=== PATIENT | female | born 1960 | race Caucasian/White ===

== ENCOUNTER 2021-02-05 15:11 | Outpatient (REF) | payer MEDICARE, SELFPAY ==
--- NOTE | ~2021-02-05 | XR_ITS ---
EXAMINATION: XR HIP, LEFT CLINICAL INFORMATION: Sprain of the hip COMPARISON: None TECHNIQUE: Two views of the left hip. Frontal view of the pelvis. FINDINGS: No fracture or dislocation. The femoral heads are well-seated within their acetabula. Joint spaces are maintained. The pelvic rim is intact. The sacroiliac joints and pubic symphysis are intact. Enthesophyte formation along the iliac crests. Nonobstructive bowel gas pattern. XR/XR hip LT w PEL1V IMPRESSION: Unremarkable appearance of the hips.
== END 2021-02-05 15:12 | disposition home or self-care (01) ==
LOC: HO.HMGCX 15:11
PROVIDERS: PCP Internal Medicine; Visit Provider Internal Medicine
DX: S73.102A Unspecified sprain of left hip, initial encounter (principal)
CPT/HCPCS: 73502

== ENCOUNTER → 2021-05-29 13:12 | Outpatient (BNVA) | payer MEDICARE, SELFPAY | PROVIDERS: PCP Internal Medicine; Visit Provider Psychiatry & Neurology Neurology | DX: G20 Parkinson's disease (principal); G47.52 REM sleep behavior disorder; K59.00 Constipation, unspecified | CPT/HCPCS: Q3014 ==

== ENCOUNTER → 2021-07-06 08:28 | Outpatient (BNVA) | payer MEDICARE, SELFPAY | PROVIDERS: PCP Internal Medicine; Visit Provider Psychiatry & Neurology Neurology | DX: G47.52 REM sleep behavior disorder (principal); G20 Parkinson's disease; F41.9 Anxiety disorder, unspecified; K59.00 Constipation, unspecified | CPT/HCPCS: 99212 ==

== ENCOUNTER → 2021-10-15 13:28 | Outpatient (BNVA) | payer MEDICARE, SELFPAY | PROVIDERS: PCP Internal Medicine; Visit Provider Psychiatry & Neurology Neurology | DX: G20 Parkinson's disease (principal); G47.52 REM sleep behavior disorder; F41.9 Anxiety disorder, unspecified; K59.00 Constipation, unspecified | CPT/HCPCS: 99212 ==

== ENCOUNTER → 2022-01-30 10:01 | Outpatient (BNVA) | payer MEDICARE, SELFPAY | PROVIDERS: PCP Internal Medicine; Visit Provider Psychiatry & Neurology Neurology | DX: G20 Parkinson's disease (principal); G47.52 REM sleep behavior disorder; F41.9 Anxiety disorder, unspecified; K59.00 Constipation, unspecified | CPT/HCPCS: 99212 ==

== ENCOUNTER → 2022-08-05 10:34 | Outpatient (BNVA) | payer MEDICARE, SELFPAY | PROVIDERS: PCP Internal Medicine; Visit Provider Psychiatry & Neurology Neurology | DX: G20 Parkinson's disease (principal); G47.52 REM sleep behavior disorder; F41.9 Anxiety disorder, unspecified; K59.00 Constipation, unspecified | CPT/HCPCS: 99212 ==

== ENCOUNTER 2025-03-24 16:14 | Emergency (ER) | payer MEDICARE, SELFPAY ==
--- NOTE | ~2025-03-24 | US_ITS ---
CLINICAL HISTORY: leg pain Venous duplex ultrasound left lower extremity Comparison: None provided Findings: The visualized deep veins are fully compressible with normal Doppler color flow and spectral tracings. No popliteal cyst. IMPRESSION: 1. Negative for left lower extremity deep vein thrombosis. This document has been electronically signed by: Rome Swartz MD on 03/24/2025 18:42:49
[2025-03-24 17:13] VITALS: BP 130/76; PULSE 78; RESP 16; TEMP 36.6; O2SAT 98; BMI 27.2
--- NOTE | 2025-03-24 17:13 | ED.GENADULT ---
HPI - General Adult General Chief complaint: Extremity Problem Stated complaint: left leg pain Related Data Home Medications ?Medication ?Instructions ?Recorded ?Confirmed anastrozole 1 mg tablet 1 mg PO DAILY 02/05/21 08/05/22 cephalexin 500 mg capsule 500 mg PO QID 02/05/21 08/05/22 celecoxib 200 mg capsule 200 mg PO DAILY 01/30/22 08/05/22 citalopram 20 mg tablet 20 mg PO DAILY 01/30/22 08/05/22 donepezil 10 mg tablet 10 mg PO 01/30/22 08/05/22 Previous Rx's ?Medication ?Instructions ?Recorded polyethylene glycol 3350 17 17 g PO DAILY #238 grams 07/06/21 gram/dose oral powder (Miralax) carbidopa 31.25 mg-levodopa 125 1 tab PO .5 times #150 tabs 08/05/22 mg-entacapone 200 mg tablet amantadine HCl 100 mg capsule 100 mg PO BID #180 caps 03/10/23 clonazepam 1 mg tablet 1 mg PO BEDTIME 90 days #90 tabs 03/14/23 ropinirole 0.25 mg tablet 0.25 mg PO .5 times a day #450 tabs 05/03/24 Allergies Allergy/AdvReac Type Severity Reaction Status Date / Time No Known Allergies Allergy Verified 03/24/25 17:18 [facility] Past Medical History Medical History Achilles rupture Breast CA Chronic left sacroiliac pain GERD (gastroesophageal reflux disease) Hypersexuality Impulse control disorder Spondylosis Surgical History History of History of lumpectomy No pertinent past surgical history Family History Family History (Updated 08/05/22 @ 11:11 by Gaby Lay MD) Sister No problems noted. Father COPD (chronic obstructive pulmonary disease) FHx: Parkinson's disease Mother No problems noted. Maternal Uncle Lung cancer Paternal Aunt FHx: Parkinson's disease Paternal Aunt FHx: Parkinson's disease Paternal Uncle FHx: Parkinson's disease Paternal Uncle No problems noted. Paternal Uncle FHx: Parkinson's disease Unknown FHx: Parkinson's disease Social History Social History Alcohol intake: never Patient Tobacco Use Status: Former Tobacco user Advance Directives: No Advance Directives Information Provided: No Physical Exam ED Vital Signs: Vital Signs - 24 hr 03/24/25 17:13 Temperature 97.9 F Pulse Rate 78 Respiratory Rate 16 Blood Pressure 130/76 Pulse Oximetry 98 Oxygen Delivery Method Room Air BMI result Body Mass Index 27.2 Course Course Course Narrative: This is an RME: Additional HPI, ROS, PE not included below will be deferred to primary provider. RME assessment and note performed by: Erma Shaffer PA-C This is a [id number], parkinson's disease, who presents to the ER with complaints of left leg pain. Reports left hip pain radiating down into her knee. Frequent falls, due to parkinsons. Was sent in from PCP to r/o blood clot and other etiologies per . Plan: labs, us, further ER eval needed Reevaluation(s) Reevaluation #1: Patient left without completing treatment. Medical Decision Making Lab Data 03/24/25 18:18 03/24/25 18:18 Labs: Lab Results 03/24/25 Range/Units 18:18 WBC 7.1 (4.8-10.8) X10*3/uL RBC 4.02 L (4.20-5.50) X10*6/uL Hgb 12.1 (12.0-16.0) g/dl Hct 36.5 L (37.0-47.0) % MCV 90.8 (80.0-98.0) fL MCH 30.1 (27.0-33.0) pg MCHC 33.2 (31.0-35.0) g/dl RDW 13.8 (11.0-16.0) % Plt Count 233 (160-400) X10*3/uL MPV 10.3 (9.4-12.3) fL Immature Gran % (Auto) 0.1 (0.0-0.4) % Neut % (Auto) 52.5 (45-73) % Lymph % (Auto) 38.1 (20-40) % Bell % (Auto) 6.9 (2-11) % Eos % (Auto) 1.6 (0-4) % Baso % (Auto) 0.8 (0-2) % Lymph # (Auto) 2.7 (1.2-4.9) X10*3/uL Bell # (Auto) 0.5 (0.1-1.2) X10*3/uL Eos # (Auto) 0.1 (0.0-0.4) X10*3/uL Baso # (Auto) 0.1 (0.0-0.2) X10*3/uL Abs Immat Gran (auto) 0.01 (0.00-0.03) X10*3/uL Absolute Neuts (auto) 3.7 (2.0-8.3) x10*3/uL Absolute Nucleated RBC 0.000 (0.0-0.012) X10*3/uL Nucleated RBC % (auto) 0.0 (0.0-0.2) /100WBC Sodium 141 (135-145) mmol/L Potassium 4.4 (3.3-5.1) mmol/L Chloride 108 (96-108) mmol/L Carbon Dioxide 28 (22-29) mmol/L Anion Gap 9 L (12-20) BUN 25 H (9-16) mg/dL Creatinine 0.91 (0.5-1.4) mg/dL Estim Creat Clear Calc 57.0 Estimated GFR > 60 Random Glucose 130 H (60-115) mg/dL Calcium 8.8 (8.4-10.2) mg/dL Magnesium 2.3 (1.6-2.6) mg/dL Total Bilirubin 0.2 (0.0-1.0) mg/dL Direct Bilirubin < 0.2 (0.0-0.5) mg/dL AST 13 (5-31) U/L ALT < 6 (0-31) U/L Alkaline Phosphatase 67 (39-117) U/L Total Protein 6.2 L (6.5-8.0) g/dL Albumin 4.4 (3.5-5.0) g/dL Discharge Plan Discharge Clinical Impression: Left leg pain Patient Disposition: Left W/O Completing Treatment Prescriptions: No Action amantadine HCl 100 mg capsule 100 mg PO BID Qty: 180 6RF clonazepam 1 mg tablet 1 mg PO BEDTIME 90 Days Qty: 90 0RF Rx Instructions: administer 30 minutes before bedtime ropinirole 0.25 mg tablet 0.25 mg PO .5 times a day Qty: 450 2RF cephalexin 500 mg capsule 500 mg PO QID anastrozole 1 mg tablet 1 mg PO DAILY citalopram 20 mg tablet 20 mg PO DAILY celecoxib 200 mg capsule 200 mg PO DAILY donepezil 10 mg tablet 10 mg PO polyethylene glycol 3350 [Miralax] 17 gram/dose powder 17 g PO DAILY Qty: 238 3RF [id number] 31.25-125-200 mg tablet 1 tab PO .5 times Qty: 150 3RF Rx Instructions: [id number]- 8pm Discharge Date/Time: 03/24/25 21:41
[2025-03-24 18:21] LABS: MANUAL DIFF FLAG NO
[2025-03-24 18:22] LABS: Hematocrit 36.5 % (37.0-47.0); Hemoglobin 12.1 g/dl (12.0-16.0); Imm Gran Abs Auto 0.01 X10*3/uL (0.00-0.03); Imm Gran Pct Auto 0.1 % (0.0-0.4); Lymphocytes Absolute Auto 2.7 X10*3/uL (1.2-4.9); Mean Corpuscular HGB Conc 33.2 g/dl (31.0-35.0); Mean Corpuscular Hemoglobin 30.1 pg (27.0-33.0); Mean Corpuscular Volume 90.8 fL (80.0-98.0); NRBC Abs Auto 0.000 X10*3/uL (0.0-0.012); NRBC Pct Auto 0.0 /100WBC (0.0-0.2); Platelet Count 233 X10*3/uL (160-400); Red Blood Count 4.02 X10*6/uL (4.20-5.50); White Blood Count 7.1 X10*3/uL (4.8-10.8)
[2025-03-24 18:38] LABS: Alanine Aminotransferase < 6 U/L (0-31); Albumin Level 4.4 g/dL (3.5-5.0); Alkaline Phosphatase 67 U/L (39-117); Anion Gap 9 (12-20); Aspartate Amino Transferase 13 U/L (5-31); Blood Urea Nitrogen 25 mg/dL (9-16); Calcium 8.8 mg/dL (8.4-10.2); Carbon Dioxide 28 mmol/L (22-29); Chloride 108 mmol/L (96-108); Creatinine Clr Calc Pharmacy 57.0; Estimated Glomerular Filt Rate > 60; Magnesium 2.3 mg/dL (1.6-2.6); Potassium 4.4 mmol/L (3.3-5.1); Sodium 141 mmol/L (135-145); Total Protein 6.2 g/dL (6.5-8.0)
--- OUTSIDE RECORDS SUMMARY | 2025-03-24 21:38 | XMS_ITS | Clinical Summary ---
Author Organization [facility], Address [address] [place] [address] Phone Care Team Providers Care Vehicle Modification Technician Name Role Phone Ned Carter MD Primary Care Provider [phone] Allergies No known active allergies Medications clonazePAM (KlonoPIN) 0.5 MG tablet Take 1 tablet by mouth 1 (one) time each day Active LORazepam (ATIVAN) 0.5 MG tablet Take 1 tablet by mouth if needed Active Melatonin 10 MG capsule Take 1 capsule by mouth 1 (one) time each day Active propranolol LA (INDERAL LA) 60 MG 24 hr capsule Take 1 capsule by mouth 1 (one) time each day Active rOPINIRole (REQUIP) 0.5 MG tablet Take 2 mg by mouth 4 times a day Active docusate sodium (COLACE) 100 MG capsule Take 1 capsule by mouth 2 (two) times a day Active Sennosides (Senna) 8.6 MG capsule Take 1 tablet by mouth 1 (one) time each day Active anastrozole (ARIMIDEX) 1 MG chemo tablet Take 1 mg by mouth daily 11/09/2019 Active citalopram (CeleXA) 20 MG tablet Take 20 mg by mouth daily 10/11/2019 Active carbidopa-levod opa (SINEMET) 25-100 MG per tablet Take 1 tablet by mouth for pain 11/24/2019 Active rOPINIRole (REQUIP) 2 MG tablet Take by mouth 4 times a day 12/16/2019 Active rOPINIRole (REQUIP) 1 MG tablet Take 1 mg by mouth 4 times a day 12/15/2019 Active [facility] Senna 8.6 MG tablet Take 1 tablet by mouth at bed time 12/02/2019 Active Active Problems Problem Noted Date Diagnosed Date Sleep apnea 12/22/2019 Anxiety 12/21/2019 Parkinson's disease 12/21/2019 Primary malignant neoplasm of breast 12/21/2019 Overview (01/06/2024): Replacing diagnoses that were inactivated after the 01/06/24 Regulatory Import Rhinitis 12/21/2019 Social History Tobacco Use Types Packs/Day Years Used Date Smoking Tobacco: Former Cigarettes 0 Q uit: 09/09/2012 Alcohol Use Standard Drinks/Week Comments Yes 0 (1 standard drink = 0.6 oz pure alcohol) Alcoholic Drinks/day: Occasional social drink Comments Unknown Sex and Gender Information Value Date Recorded Sex Assigned at Not on file Legal Sex Female 4:32 PM EST Gender Identity Not on file Sexual Orientation Not on file Last Filed Vital Signs Vital Sign Reading Time Taken Comments Blood Pressure 138/87 12/22/2019 8:25 AM EDT Pulse 60 12/22/2019 8:25 AM EDT Temperature 36.3 C (97.3 F) 12/22/2019 8:25 AM EDT Respiratory Rate 12 12/22/2019 8:25 AM EDT Oxygen Saturation 98% 12/22/2019 8:25 AM EDT Inhaled Oxygen Concentration - - Weight 77.1 kg (170 lb) 12/22/2019 8:25 AM EDT Height 157.5 cm (5' 2 ) 12/22/2019 8:25 AM EDT Body Mass Index 31.09 12/22/2019 8:25 AM EDT Plan of Treatment Health Maintenance Due Date Last Done Comments Breast Cancer Screening 1961 Pneumococcal Vaccine: 50+ Ye ars (1 of 2 - PCV) 1980 Colorectal Cancer Screening: Annual FOBT 2010 Colorectal Cancer Screening: Colonoscopy 2010 Colorectal Cancer Screening: Sigmoidoscopy 2010 Influenza Vaccine (#1) 2024 Hepatitis B Vaccine Aged Out No longe r eligible based on patient's age to complete this topic Insurance Medicare [facility] Care Teams Vehicle Modification Technician Relationship Specialty Start Date End Date Ned Carter MD [facility] [employer] [address] [place] [address] [place] PCP - General 02/09/19
== END 2025-03-24 21:41 | disposition left against medical advice (07) ==
LOC: HO.ED 21:34
PROVIDERS: Physician Assistant Medical; Emergency Provider Emergency Medicine; PCP Internal Medicine
DX: M79.605 Pain in left leg (principal); G20.A1 Parkinson's disease without dyskinesia, without mention of fluctuations; R29.6 Repeated falls; Z91.81 History of falling
CPT/HCPCS: 36415; 80048; 80076; 83735; 85025; 93971; 99281; 99284

== ENCOUNTER → 2025-03-24 17:19 | Outpatient (BNV) | payer MEDICARE, SELFPAY | PROVIDERS: PCP Internal Medicine; Visit Provider Radiology Diagnostic Radiology | DX: M79.662 Pain in left lower leg (principal) | CPT/HCPCS: 93971 ==